=== PATIENT | male | born 2000 | race Caucasian/White ===

== ENCOUNTER 2023-04-05 16:51 | Emergency (ER) | payer BC ==
[2023-04-05 17:52] LABS: SARS-CoV-2 NAA Rapid Test Not Detected (NotDetected)
== END 2023-04-05 18:20 | disposition home or self-care (01) ==
LOC: CSHERS 16:51
DX: R50.9 Fever, unspecified (principal); M79.10 Myalgia, unspecified site; R19.7 Diarrhea, unspecified
CPT/HCPCS: 99284